=== PATIENT | male | born 1990 | race Caucasian/White ===

== ENCOUNTER 2017-09-16 15:28 | Emergency (ER) | payer OTHER ==
[~2017-09-16] VITALS: Ht 182.9 cm; Wt 82.0 kg
[2017-09-16] MEDS ORDERED: LIDOCAINE 1%, 10ML INFIL ONE (16:00)
[2017-09-16] MEDS ORDERED: OXYcodone/APAP 5/325MG TABLET ONE (16:00)
[2017-09-16] MEDS ORDERED: OXYcodone/APAP 5/325MG TABLET PO ONE (16:00)
[2017-09-16] MEDS ORDERED: BUPIVACAINE 0.25% INFIL ONE (16:00)
[2017-09-16] MEDS ORDERED: LIDOCAINE-MPF 1%, 5ML ONE (16:06)
[2017-09-16] MEDS ORDERED: BUPIVACAINE 0.25% ONE (16:06)
[2017-09-16 17:12] VITALS: BP 135/86
== END 2017-09-16 18:16 | disposition home or self-care (01) ==
LOC: ED 15:34
DX: S93.129A Dislocation of metatarsophalangeal joint of unspecified toe(s), initial encounter (principal); W17.2XXA Fall into hole, initial encounter; Y93.89 Activity, other specified; Y92.89 Other specified places as the place of occurrence of the external cause; Y99.8 Other external cause status
CPT/HCPCS: 28630; 73630; 73660; 99284; J3490